=== PATIENT | female | born 1945 | race Caucasian/White ===

== ENCOUNTER 2018-07-17 12:50 | Inpatient (IN) | payer MEDICARE, BC ==
[2018-07-17] MEDS: ROCEPHIN 1 Gm-D5w 50 ml Bag** 1 G/50 ML IVPB IV SCH (13:51)
[2018-07-17] MEDS: Lactated Ringers 1,000 ML IV SCH (13:51)
[2018-07-17] MEDS: DUONEB 0.5-3 MG/3 ml Neb IH SCH ×2 (14:38→19:16)
[2018-07-17] MEDS: Zithromax 500 MG/ 250 ML NaCl Premix 500 MG/250 ML IVPB IV SCH (15:50)
[2018-07-17] MEDS ORDERED: COSOPT OPHTHALMIC 10 ML OP SCH (22:00)
[2018-07-17] MEDS ORDERED: Flonase NASAL NS SCH (22:00)
[2018-07-17] MEDS ORDERED: BENADRYL 25 MG CAPSULE PO SCH (22:00)
[2018-07-17] MEDS ORDERED: Flonase NASAL NS ONE (22:24)
[2018-07-17] MEDS: Zocor 10MG PO SCH (22:26)
[2018-07-17] MEDS: Alphagan P 0.15% OP SCH (23:34)
[2018-07-18] MEDS: DUONEB 0.5-3 MG/3 ml Neb IH SCH ×4 (00:53→18:55)
[2018-07-18] MEDS: Lactated Ringers 1,000 ML IV SCH ×2 (02:07→15:51)
[2018-07-18 05:53] LABS: Hematocrit 34.7 % (35-47); Hemoglobin 10.9 gm/dl (12.0-16.0); Mean Cell Volume 93.5 fl (78-100); Mean Corpuscular Hgb Concent. 31.4 g/dl (32-36); Mean Platelet Volume 10.7 fl (6-9.5); Platelet Count 287 K/mm3 (150-450); Red Blood Count 3.71 M/mm3 (4.1-5.4); Red Cell Distribution Width 14.1 % (11.5-14.0)
[2018-07-18 05:57] LABS: Mean Corpuscular Hemoglobin 29.3 pg (26-32)
[2018-07-18 06:04] LABS: ANION GAP 11.5 MEQ/L (5-15); BLOOD UREA NITROGEN 19 mg/dL (7-17); CHLORIDE 103 mmol/L (98-107); Calcium 9.2 mg/dL (8.4-10.2); Carbon Dioxide 27 mmol/L (22-30); Creatinine 1 0.85 mg/dL (0.52-1.04); Glucose 90 mg/dL (74-106); Potassium 3.7 mmol/L (3.5-5.1); SODIUM 138 mmol/L (137-145)
[2018-07-18] MEDS ORDERED: NON-FORMULARY ITEM (Sumatriptan Succinate [Imitrex 50 Mg] 50 MG) PO PRN (07:20)
--- NOTE | 2018-07-18 08:44 | PCM.NOTE ---
Date and Time: 07/18/18837 Subjective Assessment: Pt is a 72 yo female pt of mine seen in office yesterday for cough and fatigue and directly admitted after her WBC came back at 25,000 with a left shift. She had some desaturation last night and coughed up much phlegm after a breathing tx. Still SOB with exertion. On zithromax IV and rocephin IV. Raffi po well. I did stop in to see the patient last night briefly (at approx 21:00) but there is no note from that. - Review of Systems Constitutional: Fatigue, No Fever Respiratory: Cough Objective Exam General Appearance: no apparent distress, alert Neurologic Exam: oriented x 3, cooperative Skin Exam: normal color, warm, dry, No rash Respiratory Exam: diminished breath sounds, crackles/rales (RLL crackles), No rhonchi, No wheezing Cardiovascular Exam: regular rate/rhythm, normal heart sounds, No murmur Gastrointestinal/Abdomen Exam: soft, normal bowel sounds, No tenderness, No distention, No mass, No guarding, No rebound Extremity Exam: No pedal edema, No swelling Back Exam: normal inspection, No rash OBJECTIVE DATA Vital Signs: Vital Signs - 24 hr Temp Pulse Resp BP Pulse Ox 07/18/18 07:50 98.3 F 72 18 123/61 97 07/18/18 07:14 74 18 95 07/18/18 04:00 98.1 F 59 L 19 110/52 95 07/18/18 03:20 20 07/18/18 02:05 86 L 07/18/18 00:53 60 13 93 L 07/18/18 00:00 98.0 F 58 L 20 138/63 98 07/17/18 20:00 98.3 F 61 18 128/59 94 L 07/17/18 19:16 61 18 94 L 07/17/18 16:00 98.6 F 74 18 116/55 98 07/17/18 15:02 97.8 F 86 18 127/57 93 L 07/17/18 14:39 86 18 93 L 07/17/18 13:55 97.8 F 75 127/57 94 L Oxygen-Last 24 hours O2 Percentage 2 Liters = 28% O2 Percentage 2 Liters = 28% Pain Assessment - Last Documented Pain Intensity 0 Pain Scale Used 0-10 Pain Scale Intake and Output: Intake & Output 07/15/18 07/16/18 07/17/18 07/18/18 11:59 11:59 11:59 11:59 Intake Total 2566 Output Total 1800 Balance 766 Weight 91.6 kg Lab Results: Lab Results-Last 24 Hours 07/18/18 07/18/18 Range/Units 05:41 05:41 WBC 15.0 H (4.0-10.5) K/mm3 RBC 3.71 L (4.1-5.4) M/mm3 Hgb 10.9 L (12.0-16.0) gm/dl Hct 34.7 L (35-47) % MCV 93.5 (78-100) fl MCH 29.3 (26-32) pg MCHC 31.4 L (32-36) g/dl RDW 14.1 H (11.5-14.0) % Plt Count 287 (150-450) K/mm3 MPV 10.7 H (6-9.5) fl Sodium 138 (137-145) mmol/L Potassium 3.7 (3.5-5.1) mmol/L Chloride 103 (98-107) mmol/L Carbon Dioxide 27 (22-30) mmol/L Anion Gap 11.5 (5-15) MEQ/L BUN 19 H (7-17) mg/dL Creatinine 0.85 (0.52-1.04) mg/dL Estimated GFR > 60.0 ML/MIN Glucose 90 (74-106) mg/dL Calcium 9.2 (8.4-10.2) mg/dL Radiology Exams: Radiology Procedures Category Date Time Status ECHO W/2D AND DOPPLER [US] Routine Exams 07/17/18 14:00 Taken Assessment/Plan (1) Pneumonia Current Visit: Yes Status: Acute Qualifiers: Pneumonia type: due to unspecified organism Laterality: right Lung location: lower lobe of lung Qualified Code(s): J18.1 - Lobar pneumonia, unspecified organism Assessment & Plan: Sounds better than in office. WBC have improved from 25,000 to 15,000 this morning. Recheck in a.m. May be able to d/c home tomorrow but at least needs to stay another day. If has more desaturation tonight, will encourage her to stay another day. Code(s): J18.9 - PNEUMONIA, UNSPECIFIED ORGANISM (2) SOB (shortness of breath) Current Visit: Yes Status: Acute Assessment & Plan: echo pending. Code(s): R06.02 - SHORTNESS OF BREATH (3) Hypertension Current Visit: Yes Status: Chronic Qualifiers: Hypertension type: essential hypertension Qualified Code(s): I10 - Essential (primary) hypertension Code(s): I10 - ESSENTIAL (PRIMARY) HYPERTENSION (4) Hypothyroid Current Visit: Yes Status: Chronic Qualifiers: Hypothyroidism type: unspecified Qualified Code(s): E03.9 - Hypothyroidism , unspecified Code(s): E03.9 - HYPOTHYROIDISM, UNSPECIFIED
[2018-07-18] MEDS: hydroDIURIL 25 MG PO SCH (09:49)
[2018-07-18] MEDS: Prozac 20 MG PO SCH (09:49)
[2018-07-18] MEDS: BENADRYL 25 MG CAPSULE PO SCH ×2 (09:50→21:27)
[2018-07-18] MEDS: SYNTHROID 100 MCG PO SCH (09:54)
[2018-07-18] MEDS ORDERED: NON-FORMULARY ITEM (Hydrochlorothiazide [Hydrochlorothiazide] 12.5 MG) PO SCH (10:00)
[2018-07-18] MEDS: ROCEPHIN 1 Gm-D5w 50 ml Bag** 1 G/50 ML IVPB IV SCH (10:19)
[2018-07-18] MEDS: Zithromax 500 MG/ 250 ML NaCl Premix 500 MG/250 ML IVPB IV SCH (10:20)
[2018-07-18] MEDS: COSOPT OPHTHALMIC 10 ML OP SCH ×2 (10:20→21:22)
--- NOTE | 2018-07-18 11:21 | ECHO ---
Transthoracic echocardiographic examination and color Doppler was done on 07/17/2018. INDICATION: Shortness of breath, hypertension. IMPRESSION: 1) NO REGIONAL WALL MOTION ABNORMALITY. ESTIMATED GLOBAL LEFT VENTRICULAR EJECTION FRACTION 60%. 2) TRACE MITRAL REGURGITATION. 3) TRACE TRICUSPID REGURGITATION. RIGHT VENTRICULAR SYSTOLIC PRESSURE OF 29 MM OF MERCURY. 4) LEFT VENTRICULAR HYPERTROPHY. 5) LEFT VENTRICULAR DIASTOLIC DYSFUNCTION. The left ventricle is visualized and demonstrated adequate motion of all the segments. Estimated global left ventricular ejection fraction 60%. There is mild left ventricular hypertrophy. The mitral valve is seen and this opens adequately. There is trace mitral regurgitation. Left atrium is normal. The aortic valve opens adequately. There is no significant gradient across the left ventricular outflow tract. The right side chambers are normal. There is trace tricuspid regurgitation. The right ventricular systolic pressure of 29 mm of Mercury. Tissue Doppler study of the lateral mitral annulus suggestive of left ventricular diastolic dysfunction.
[2018-07-18] MEDS: Zocor 10MG PO SCH (21:20)
[2018-07-18] MEDS: Flonase NASAL NS SCH (21:21)
[2018-07-18] MEDS: Alphagan P 0.15% OP SCH (21:23)
[2018-07-19] MEDS: DUONEB 0.5-3 MG/3 ml Neb IH SCH ×4 (00:52→19:17)
[2018-07-19] MEDS: Lactated Ringers 1,000 ML IV SCH ×2 (04:30→19:43)
--- NOTE | 2018-07-19 08:49 | PCM.NOTE ---
Date and Time: 07/19/18 0845 Subjective Assessment: Pt's O2 sat was 88% on RA this morning so RT replaced her O2. RT states she is noncompliant with the oxygen. She states she is feeling better than on arrival ; less SANZ. Raffi po well. Denies constipation. - Review of Systems Constitutional: No Fever Respiratory: Cough Objective Exam General Appearance: no apparent distress, alert Neurologic Exam: oriented x 3, cooperative Skin Exam: normal color, warm, dry, No rash Respiratory Exam: normal breath sounds, crackles/rales (bilat bases), No rhonchi , No wheezing Cardiovascular Exam: regular rate/rhythm, normal heart sounds, No murmur Extremity Exam: No pedal edema, No swelling Back Exam: normal inspection, No rash OBJECTIVE DATA Vital Signs: Vital Signs - 24 hr Temp Pulse Resp BP BP Pulse Ox 07/19/18 07:56 97.9 F 69 14 113/56 92 L 07/19/18 07:08 78 18 92 L 07/19/18 04:00 98.0 F 66 16 115/55 94 L 07/19/18 00:52 64 16 91 L 07/19/18 00:00 98.3 F 63 17 113/55 94 L 07/18/18 20:00 98.2 F 85 19 112/54 92 L 07/18/18 18:55 78 16 94 L 07/18/18 16:00 98.2 F 59 L 18 115/57 94 L 07/18/18 12:44 58 L 18 98 07/18/18 12:00 18 07/18/18 11:33 98.2 F 58 L 18 116/58 97 Oxygen-Last 24 hours O2 Percentage 2 Liters = 28% O2 Percentage 2 Liters = 28% Pain Assessment - Last Documented Pain Intensity 0 Pain Scale Used 0-10 Pain Scale Intake and Output: Intake & Output 07/16/18 07/17/18 07/18/18 07/19/18 11:59 11:59 11:59 11:59 Intake Total 2806 3456 Output Total 1800 3650 Balance 1006 -194 Weight 91.6 kg Radiology Exams: Radiology Procedures Category Date Time Status ECHO W/2D AND DOPPLER [US] Routine Exams 07/17/18 14:00 Draft Assessment/Plan (1) Pneumonia Current Visit: Yes Status: Acute Onset Date: ~07/17/18 Qualifiers: Pneumonia type: due to unspecified organism Laterality: right Lung location: lower lobe of lung Qualified Code(s): J18.1 - Lobar pneumonia, unspecified organism Assessment & Plan: Improved, but still has O2 requirement. Checking WBC again today. Will keep again overnight, likely home tomorrow. Code(s): J18.9 - PNEUMONIA, UNSPECIFIED ORGANISM (2) SOB (shortness of breath) Current Visit: Yes Status: Acute Onset Date: ~07/17/18 Assessment & Plan: improved Code(s): R06.02 - SHORTNESS OF BREATH (3) Hypertension Current Visit: Yes Status: Chronic Onset Date: ~07/17/18 Qualifiers: Hypertension type: essential hypertension Qualified Code(s): I10 - Essential (primary) hypertension Assessment & Plan: BP well controlled here Code(s): I10 - ESSENTIAL (PRIMARY) HYPERTENSION (4) Hypothyroid Current Visit: Yes Status: Chronic Onset Date: ~07/17/18 Qualifiers: Hypothyroidism type: unspecified Qualified Code(s): E03.9 - Hypothyroidism , unspecified Code(s): E03.9 - HYPOTHYROIDISM, UNSPECIFIED (5) Hypoxemia Current Visit: Yes Status: Acute Assessment & Plan: Pt may need O2 and cpap at home; would need sleep study outpatient. Code(s): R09.02 - HYPOXEMIA
[2018-07-19 09:35] LABS: BASOPHIL % 0.4 % (0.0-0.4); Basophil (Absolute #) 0.05 (0-0.4); Eosinophil % 6.1 % (0.00-5.0); Eosinophil (Absolute #) 0.83 (0-0.5); Granulocyte Absolute (ANC) 9.62 (1.4-6.9); Granulocytes % 70.2 % (36.0-66.0); Hematocrit 35.9 % (35-47); Hemoglobin 11.1 gm/dl (12.0-16.0); Lymphocyte (Absolute #) 2.36 (1.0-4.6); Lymphocytes % 17.2 % (24.0-44.0); Mean Cell Volume 94.7 fl (78-100); Mean Corpuscular Hgb Concent. 30.9 g/dl (32-36); Mean Platelet Volume 10.4 fl (6-9.5); Monocyte (Absolute #) 0.83 (0.0-1.3); Monocytes % 6.1 % (0.0-12.0); Platelet Count 263 K/mm3 (150-450); Red Blood Count 3.79 M/mm3 (4.1-5.4); Red Cell Distribution Width 14.3 % (11.5-14.0); White Blood Count 13.7 K/mm3 (4.0-10.5)
[2018-07-19 09:40] LABS: Mean Corpuscular Hemoglobin 29.2 pg (26-32)
[2018-07-19] MEDS: ROCEPHIN 1 Gm-D5w 50 ml Bag** 1 G/50 ML IVPB IV SCH (10:00)
[2018-07-19] MEDS ORDERED: ENOXAPARIN SODIUM SQ SCH (10:00)
[2018-07-19] MEDS: Prozac 20 MG PO SCH (10:03)
[2018-07-19] MEDS: hydroDIURIL 25 MG PO SCH (10:03)
[2018-07-19] MEDS: BENADRYL 25 MG CAPSULE PO SCH ×2 (10:03→22:41)
[2018-07-19] MEDS: SYNTHROID 100 MCG PO SCH (10:03)
[2018-07-19] MEDS: Zithromax 500 MG/ 250 ML NaCl Premix 500 MG/250 ML IVPB IV SCH (10:04)
[2018-07-19] MEDS: COSOPT OPHTHALMIC 10 ML OP SCH ×2 (10:04→22:41)
[2018-07-19 13:08] LABS: ANION GAP 11.7 MEQ/L (5-15); Calcium 9.3 mg/dL (8.4-10.2); Creatinine 1 1.01 mg/dL (0.52-1.04); Potassium 3.8 mmol/L (3.5-5.1)
[2018-07-19] MEDS: Alphagan P 0.15% OP SCH (22:40)
[2018-07-19] MEDS: Flonase NASAL NS SCH (22:42)
[2018-07-19] MEDS: Zocor 10MG PO SCH (22:42)
[2018-07-20] MEDS: DUONEB 0.5-3 MG/3 ml Neb IH SCH ×2 (05:54→06:49)
[2018-07-20] MEDS: Lactated Ringers 1,000 ML IV SCH (06:40)
[2018-07-20 08:16] VITALS: BP 107/64; PULSE 74; O2SAT 90
--- NOTE | 2018-07-20 08:50 | PCM.DS ---
Discharge Summary Date of Admission: 07/17/18 13:34 Admitting Physician: ROBERTA GREY Primary Care Provider: ROBERTA GREY Allergies Allergies amlodipine besylate [From Norvasc] Allergy (Verified 01/26/15 16:55) Lightheadedness celecoxib [From Celebrex] Allergy (Verified 01/26/15 16:55) Rash codeine Adverse Reaction (Verified 01/26/15 16:55) Nausea morphine Adverse Reaction (Verified 01/28/15 06:14) Nausea Hospital Summary - Hospital Course Hospital Course: Pt was seen in office for cough and SANZ and was admitted for pneumonia when her WBC count was 25,000. CXR was negative. She was put on IV rocephin and zithromax with improvement. She was noted to have an oxygen requirement at night; does not wear oxygen at home but had noted that her a.m. pulse ox readings would be 88-90%, improving when she was up out of bed. She had an overnight pulse ox study on room air last night and most of the night was spent under 90%. She continues to have cough. Due to SANZ, an echocardiogram was done. Preliminary report just in showing EF 60 % with LVH and diastolic dysfunction. Has been afebrile. WBC down, now to 13.7 (yesterday). Home on po cefdinir. - Vitals & Intake/Output Vital Signs: Vital Signs Temperature 98.3 F 07/20/18 08:00 Pulse Rate 74 07/20/18 08:00 Respiratory Rate 18 07/20/18 08:00 Blood Pressure 107/64 07/20/18 08:00 O2 Sat by Pulse Oximetry 90 L 07/20/18 08:00 Oxygen-Last Documented O2 Percentage 2 Liters = 28% Intake & Output: Intake & Output 07/17/18 07/18/18 07/19/18 07/20/18 11:59 11:59 11:59 11:59 Intake Total 2806 4056 2329 Output Total 1800 4050 1900 Balance 1006 6 429 Weight 91.6 kg - Lab Result Diagrams: 07/19/18 09:27 07/19/18 09:27 Lab Results-Last 24 Hrs: Lab Results-Last 24 Hours 07/19/18 07/19/18 Range/Units 09:27 09:27 WBC 13.7 H (4.0-10.5) K/mm3 RBC 3.79 L (4.1-5.4) M/mm3 Hgb 11.1 L (12.0-16.0) gm/dl Hct 35.9 (35-47) % MCV 94.7 (78-100) fl MCH 29.2 (26-32) pg MCHC 30.9 L (32-36) g/dl RDW 14.3 H (11.5-14.0) % Plt Count 263 (150-450) K/mm3 MPV 10.4 H (6-9.5) fl Gran % 70.2 H (36.0-66.0) % Eos # (Auto) 0.83 H (0-0.5) Absolute Lymphs (auto) 2.36 (1.0-4.6) Absolute Monos (auto) 0.83 (0.0-1.3) Lymphocytes % 17.2 L (24.0-44.0) % Monocytes % 6.1 (0.0-12.0) % Eosinophils % 6.1 H (0.00-5.0) % Basophils % 0.4 (0.0-0.4) % Absolute Granulocytes 9.62 H (1.4-6.9) Basophils # 0.05 (0-0.4) Sodium 140 (137-145) mmol/L Potassium 3.8 (3.5-5.1) mmol/L Chloride 103 (98-107) mmol/L Carbon Dioxide 29 (22-30) mmol/L Anion Gap 11.7 (5-15) MEQ/L BUN 16 (7-17) mg/dL Creatinine 1.01 (0.52-1.04) mg/dL Estimated GFR 57.6 ML/MIN Glucose 100 (74-106) mg/dL Calcium 9.3 (8.4-10.2) mg/dL - Procedures and Test Procedures and Tests throughout Hospitalization: Therapy Orders & Screens 07/17/18 14:00 Respiratory Nebulizer UD Comment: duonebs every 6 hours Diagnosis: PNE,sob,failed op,fatigue,cough, 07/17/18 14:23 Peak Expiratory Flow Rate ONCE Comment: Reason For Exam: Diagnosis: PNE,sob,failed op,fatigue,cough, Respiratory Therapy Assessment DAILY Comment: Diagnosis: PNE,sob,failed op,fatigue,cough, 07/18/18 02:09 Oxygen NASAL CANNULA 2 lpm Comment: Diagnosis: Failed Outpatient,Cough,PNE,SOB,Fatigue,Leukocytosis Discharge Exam General Appearance: no apparent distress, alert Neurologic Exam: oriented x 3, cooperative Skin Exam: normal color, warm, dry, No rash Eye Exam: eyes nml inspection Ears, Nose, Throat Exam: moist mucous membranes Neck Exam: normal inspection Respiratory Exam: normal breath sounds, lungs clear, crackles/rales (bibasilar, R>L), No rhonchi, No wheezing Cardiovascular Exam: regular rate/rhythm, normal heart sounds, No murmur Extremity Exam: No pedal edema, No swelling Back Exam: normal inspection, No rash Final Diagnosis/Problem List - Final Discharge Diagnosis/Problem (1) Pneumonia Current Visit: Yes Status: Acute Onset Date: ~07/17/18 Assessment & Plan: Improved. Home on cefdinir to finish 2 weeks total. Received 3 d of IV zithromax. (2) SOB (shortness of breath) Current Visit: Yes Status: Acute Onset Date: ~07/17/18 Assessment & Plan: improved. (3) Hypertension Current Visit: Yes Status: Chronic Onset Date: ~07/17/18 (4) Hypothyroid Current Visit: Yes Status: Chronic Onset Date: ~07/17/18 (5) Hypoxemia Current Visit: Yes Status: Acute Onset Date: ~07/18/18 Assessment & Plan: Home on night time O2 and needs sleep study. - Discharge Disposition: Home, Self-Care Condition: Stable Prescriptions: New Cefdinir 300 mg PO BID #20 capsule Albuterol 2.5 mg/3 ml Neb [Proventil 2.5 mg/3 ml Neb] 2.5 mg IH QID # 60 neb Continue Diphenhydramine HCl 25 mg [Benadryl 25 mg Capsule] 50 mg PO BID Simvastatin [Zocor] 10 mg PO HS Fluoxetine HCl [Prozac] 20 mg PO DAILY hydroCHLOROthiazide [Hydrochlorothiazide] 12.5 mg PO DAILY Levothyroxine Sodium 100 Mcg [Synthroid 100 Mcg] 100 mcg PO DAILY SUMAtriptan succinate [Imitrex 50 mg] 50 mg PO Q12H PRN PRN PRN Reason: Headache Dorzolamide HCl/Timolol Maleat [Cosopt Eye Drops] 10 ml OP BID Brimonidine Tartrate [Alphagan P 0.15%] 2 drop OP HS Fluticasone Propionate [Flonase NASAL] 2 spray NS HS Instructions: Pneumonia, Adult (DC), Shortness of Breath (Dyspnea) (DC) Follow up with: ROBERTA GREY [Primary Care Provider] - 1 Week Forms: Discharge Instructions
[2018-07-20] MEDS: hydroDIURIL 25 MG PO SCH (10:08)
[2018-07-20] MEDS: SYNTHROID 100 MCG PO SCH (10:08)
[2018-07-20] MEDS: Prozac 20 MG PO SCH (10:08)
[2018-07-20] MEDS: BENADRYL 25 MG CAPSULE PO SCH (10:08)
[2018-07-20] MEDS: COSOPT OPHTHALMIC 10 ML OP SCH (10:09)
== END 2018-07-20 10:20 | disposition home or self-care (01) | DRG 195 ==
LOC: MED SURG 13:34
PROVIDERS: ADMIT Family Medicine; ATTEND Family Medicine
DX: J18.9 Pneumonia, unspecified organism (principal); R06.02 Shortness of breath; I10 Essential (primary) hypertension; E03.9 Hypothyroidism, unspecified; R09.02 Hypoxemia; E78.5 Hyperlipidemia, unspecified; M19.90 Unspecified osteoarthritis, unspecified site; R53.83 Other fatigue
CPT/HCPCS: 36415; 71046; 80048; 80053; 81001; 83880; 85025; 85027; 90662; 93306; 94010; 94150; 94640; 94760; 94762; G0008; J0456; J0696; J1650; A9270-GY